=== PATIENT | male | born 1970 ===

== ENCOUNTER 2022-08-05 08:00 | Inpatient (IN) | payer OTHER ==
[~2022-08-05] VITALS: Ht 182.9 cm; Wt 108.9 kg
== END 2022-08-11 10:54 | disposition home or self-care (01) | DRG 658 ==
LOC: O/R 08-08 05:34 → SURG 08-08 07:00 → SURH 08-08 14:38 → SURG 08-08 16:03
PROVIDERS: ADMIT Urology; ATTEND Urology
PROC: 0TT04ZZ Resection of Right Kidney, Percutaneous Endoscopic Approach (ICD-10-PCS; principal; 2022-08-08 07:00)
DX: C64.1 Malignant neoplasm of right kidney, except renal pelvis (principal)